=== PATIENT | female | born 1970 | race Caucasian/White ===

== ENCOUNTER → 2018-03-10 | Outpatient (CLI) | payer BC ==
[~2018-03-10] MED LIST: ACET-1693 PO; IBUP-103 PO
--- NOTE | 2018-03-10 14:44 | MAMMOGRAPHY REPORT ---
BILATERAL DIGITAL DIAGNOSTIC MAMMOGRAM TOMOSYNTHESIS WITH CAD AND LEFT ULTRASOUND: 03/10/2018 CLINICAL HISTORY: 47-year-old woman presents after she discovered a left breast lump with associated pain approximately 2 weeks ago. She reports the lump is approximately 1.0 x 0.5 cm and has not change d in size since she first discovered it. She reports possible crusting of the left nipple. No skin er ythema or bloody nipple discharge. Family history of breast cancer = aunt. Also due for bilateral carlene mography. TECHNIQUE: Bilateral CC and MLO 2D and tomosynthesis images were obtained. Current study was also ev aluated with a Computer Aided Detection (CAD) system. COMPARISON: Comparison is made to exam dated: 04/22/2012 mammogram - [facility]. BREAST COMPOSITION: There are scattered areas of fibroglandular density in both breasts. FINDINGS: A triangular palpable marker was placed on the skin of the 4:00 left breast, denoting the a fuentes of palpable lump pointed out by the patient. There is a bilobed circumscribed mass versus 2 [address] masses in the lateral approximate 3:00 to 4:00 left breast measuring 3.7 x 7.2 mm. Unclear if t his correlates as palpated. No other breast masses, asymmetries, areas of distortion or calcificatio ns are identified bilaterally. No nipple retraction is seen. Targeted ultrasound was performed over the area of concern described by the patient. She pointed out the lump in the 5:00 left breast, 6 cm from the nipple and there is pain with ultrasound scanning lo cated in the 5:00 axis, 46 cm from the nipple. Ultrasound performed directly over this area demonst rates no suspicious solid or cystic mass. The mammographically identified mass corresponds with a be nign intramammary lymph node is seen in the 4:00 left breast, 4 cm from the nipple. There is no suspicious mammographic or targeted sonographic abnormality in the 4:00 to 5:[address], to explain the patient's small lump with associated pain. Therefore, continued clinical follow-u p and clinical monitoring is recommended. IMPRESSION: ACR BI-RADS CATEGORY 2: BENIGN, ULTRASOUND ACR BI-RADS CATEGORY 2: BENIGN 1. No suspicious mammographic or targeted sonographic abnormality identified in the left 4:005:00 b reast to explain the new small lump and pain described by the patient. Therefore continued clinical monitoring and clinical follow-up is recommended, as biopsy of a clinically suspicious mass should no t be precluded by negative imaging. 2. There is a benign intramammary lymph node in the left breast 4:00 axis seen both mammographically and on ultrasound. 3. No mammographic evidence of malignancy in the right breast. 4. Also recommend routine screening mammography in 1 year (03/2019). Some breast cancers are not detected with mammography. A negative mammographic report should not marly y biopsy if a clinically suggestive mass is present. Lilliam Cabello M.D. ay/:03/10/2018 11:44:07 [employer]: Yuki Tapia, [facility]; Lilliam Cabello [facility] letter sent: Normal 1/2 OVERALL STUDY BIRADS: 2 Benign
== END | disposition home or self-care (01) ==
LOC: C.MAMM 11:07
PROVIDERS: ATTEND Internal Medicine
DX: N63.20 Unspecified lump in the left breast, unspecified quadrant (principal)